=== PATIENT | male | born 1970 | race Two or more races ===

== ENCOUNTER 2024-08-17 11:14 | Emergency (ER) | payer OTHER, SELFPAY ==
--- NOTE | 2024-08-17 11:26 | EKG_ITS ---
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
--- NOTE | 2024-08-17 11:35 | XR_ITS ---
Examination: PA lateral chest 2 views TECHNIQUE: Upright PA lateral chest 2 views Exam date and time: August 17, 2024 1203 hours INDICATIONS: Chest pain beginning 2 days ago. FINDINGS: Mild enlargement cardiac contour Mild vascular congestion. No lobar pneumonia or pulmonary edema IMPRESSION: Mild vascular congestion
--- NOTE | 2024-08-17 11:37 | PD.EDRME ---
Rapid Medical Screening Exam RME Arrival date/time: 08/17/24 11:14 54-year-old male presents emergency department today with multiple episodes of either dozing off or passing out patient reports this is been ongoing for the last year Chief Complaint: Syncope / Near Syncope
[2024-08-17 11:49] VITALS: BP 196/112; BP 199/118; PULSE 68; RESP 20; TEMP 36.4; O2SAT 99
[2024-08-17 12:42] LABS: Glucose Estimated Average 137 mg/dL (80-131); Hemoglobin A1C 6.4 % Hgb (4.8-6.0)
[2024-08-17 12:48] LABS: B-Type Natriuretic Peptide 42 pg/mL (0-100)
[2024-08-17 12:51] LABS: Alanine Aminotransferase 19 U/L (10-49); Albumin, Serum 4.2 gm/dL (3.5-5.0); Albumin/Globulin Ratio 1.4 (1.2-2.2); Alkaline Phosphatase 93 U/L (46-116); Anion Gap 7 (7-16); Aspartate Amino Transferase 39 U/L (0-34); BUN/Creatinine Ratio 13 Ratio (12-20); Bilirubin,Total 0.6 mg/dL (0.3-1.2); Blood Urea Nitrogen 10 mg/dL (9-23); Calcium 9.4 mg/dL (8.3-10.6); Calcium (Corrected) 9.4 mg/dL (8.5-10.1); Carbon Dioxide 27.3 mMol/L (20.0-31.0); Chloride 104 mMol/L (98-107); Creatinine (Component) 0.8 mg/dL (0.6-1.3); Globulin 3.1 gm/dL (2.3-3.5); Glucose 97 mg/dL (74-106); Magnesium 1.9 mg/dL (1.6-2.6); Osmolality,Calculated 274 (275-295); Potassium 4.3 mMol/L (3.4-5.1); Sodium 138 mMol/L (136-145); Total Protein 7.3 gm/dL (5.7-8.2); Troponin I < 0.020 ng/mL (0.0-0.045); eGFR > 60 See Note
[2024-08-17 12:52] LABS: Prothrombin Time 11.4 Seconds (9.0-12.2)
[2024-08-17 13:39] LABS: Collection Type, Urine Clean Catch
[2024-08-17 13:49] LABS: Bilirubin,Urine Negative (Negative); Blood,Urine Negative (Negative); Clarity,Urine Clear (Clear/Hazy); Color,Urine Yellow (Lt Yel-Yel); Glucose, Urine Negative (Negative); Ketones,Urine Negative (Negative); Leukocyte Esterase,Urine Negative (Negative); Nitrite,Urine Negative (Negative); Protein,Urine 3+ (Neg - Trace); RBC,Urine 2 /hpf (0-3); Specific Gravity,Urine 1.022 (1.001-1.035); Squamous Epithelial Cell,Urine < 1 /hpf (0-5); WBC,Urine 5 /hpf (0-5)
[2024-08-17 13:54] LABS: Amphetamine/Methamp Scrn,U Negative (Negative); Barbiturate Screen,Urine Negative (Negative); Benzodiazepines Screen,Urine Negative (Negative); Benzoylecgonine Screen, Ur Negative (Negative); Fentanyl Screen,Urine Negative (Negative); Opiate Screen,Urine Negative (Negative); THC Screen,Urine Negative (Negative)
[2024-08-17 15:52] LABS: Basophils # (Auto) 0.1 Thou/mm3 (0.0-0.2); Basophils % (Auto) 1 % (0-2.5); Eosinophils # (Auto) 1.3 Thou/mm3 (0.0-0.5); Eosinophils % (Auto) 12 % (0-10); Hemoglobin 11.5 g/dL (13.5-16.0); Immature Granulocytes % (Auto) 0 % (0-0); Immature Granulocytes Auto 0.05 Thou/mm3 (0.00-0.00); Lymphocytes # (Auto) 1.5 Thou/mm3 (1.0-4.8); Lymphocytes % (Auto) 13 % (10-50); Mean Corpuscular HGB Conc 25.6 g/dl (31.0-37.0); Mean Corpuscular Hemoglobin 14.9 pg (25.0-35.0); Mean Corpuscular Volume 58 fL (80-100); Monocytes % (Auto) 9 % (0-12); Neutrophils # (Auto) 7.3 Thou/mm3 (1.8-7.7); Neutrophils % (Auto) 65 % (37-80); Nucleated Red Blood Cell % 0 /100 WBC (0); Platelet Count 230 Thou/mm3 (140-440); RDW Standard Deviation 46.5 fL (35.1-43.9); Red Blood Count 7.74 Miln/mm3 (4.50-5.90); White Blood Count 11.3 Thou/mm3 (3.8-10.6)
[2024-08-17 16:34] LABS: Path Review Blood Smear Sent to Pathologist
[2024-08-17 16:39] VITALS: BP 202/102; BP 204/100; PULSE 67; RESP 18; TEMP 36.6; O2SAT 95
--- NOTE | 2024-08-17 16:55 | EDNOTE_ITS ---
ED Syncope RME/HPI General Chief Complaint: Syncope / Near Syncope Stated Complaint: SYNCOPE LAST NIGHT AT HOME Time Seen by Provider: 08/17/24 18:18 Arrival date/time: 08/17/24 11:14 RME / HPI RME / HPI narrative: 08/17/24 11:14 54-year-old male presents emergency department today with multiple episodes of either dozing off or passing out patient reports this is been ongoing for the last year DR. CLARK MAIN ED EVALUATION: 54 year old male presents to the Emergency Department with complaint of multiple episodes of dozing off or passing out and generalized weakness. Onset of symptoms a year. Related Data Allergies Allergy/AdvReac Type Severity Reaction Status Date / Time NKA* Allergy Uncoded 08/17/24 11:15 Review of Systems Review of Systems Systems Reviewed: All systems reviewed, normal except as documented Narrative Review of Systems: GEN: No fever, no chills, no weight loss EYES: No discharge, no visual changes, no pain HEENT: No ear pain, no congestion, no sore throat PULM: No shortness of breath, no cough, no congestion CV: No chest pain, no dyspnea on exertion, no palpitations GI: No nausea, no vomiting, no diarrhea, no pain, no constipation : No frequency, no urgency and no dysuria MUSC/SKEL: No joint pain, no back pain SKIN: No rash PSYCH: No hallucinations, no depression HEME/LYMPH: No easy bleeding or bruising tendencies NEURO: + syncopal episodes? (see HPI), + generalized weakness, no headache Past Medical History Social History SMOKING STATUS: Never smoker SUBSTANCE USE: does not use ALCOHOL: Never ED Exam Narrative Physical exam: GENERAL APPEARANCE: alert and oriented x 4, well-developed, well-nourished, no acute distress VITALS: All vitals were reviewed and the pulse ox is 95% on room air, which is normal according to my interpretation. HEENT: Normocephalic, atraumatic; pupils equal, round, reactive to light; EOMI; mucous membranes pink, moist; oropharynx clear NECK: Supple LUNGS: CTABL; no wheezes, no rales, no rhonchi HEART: Regular rate, regular rhythm; normal S1, S2; no murmurs ABDOMEN: non distended; normal BS; soft, no tenderness, no guarding, no rebound; no masses, no organomegaly, no hernia BACK: no CVA tenderness EXTREMITIES: atraumatic; no edema NEUROLOGIC: awake; alert and oriented x4; cranial nerves II-XII grossly intact; no focal sensory or motor deficits PSYCHIATRIC: appropriate mood and affect SKIN: warm, dry, normal color; no rashes Course Course Course Narrative: 1800: Patient was signed out to Dr. De Guzman. Past medical, surgical, social and family history reviewed. Vitals and home medications reviewed. Results and treatment plan discussed. They will assume the care of the patient at this time and will follow the patient, pending remainder of diagnostic tests and final disposition. Quality Measures none Orders Category Date Time Status EKG (ED ONLY) *Do not use* NOW Care 08/17/24 11:[address] head/brain wo con Stat Exams 08/17/24 18:21 Ordered EKG (ED Only) Stat Exams 08/17/24 11:26 Draft XR chest 2V Stat Exams 08/17/24 11:35 Completed A1C [Glycohemoglobin w (eAG)] Stat Lab 08/17/24 11:57 Completed B-Type Natriuretic Peptide Stat Lab 08/17/24 11:57 Completed CBC Stat Lab 08/17/24 15:24 Completed Comprehensive Metabolic Panel Stat Lab 08/17/24 11:57 Completed Drug Screen,Urine Stat Lab 08/17/24 13:10 Completed Magnesium Stat Lab 08/17/24 11:57 Completed Partial Thromboplastin Time Stat Lab 08/17/24 11:57 Completed Path Review Blood Smear Stat Lab 08/17/24 15:24 Completed Prothrombin Time with INR Stat Lab 08/17/24 11:57 Completed Troponin I Stat Lab 08/17/24 11:57 Completed Urinalysis Stat Lab 08/17/24 13:10 Completed Metoprolol Tartrate [Lopressor] Med 08/17/24 18:21 Discontinued 50 mg PO X1 ONE cloNIDine HCL [Catapres] Med 08/17/24 18:21 Discontinued 0.2 mg PO X1 ONE hydrALAZINE HCL [Apresoline] Med 08/17/24 16:52 Discontinued 25 mg PO X1 ONE Vital Signs Vital signs: Vital Signs Temperature 97.6 F 08/17/24 11:49 Pulse Rate 68 08/17/24 11:49 Respiratory Rate 20 08/17/24 11:49 Blood Pressure 196/112 H 08/17/24 11:49 Pulse Oximetry (%) 99 08/17/24 11:49 Oxygen Delivery Method Room Air 08/17/24 11:49 Syncope MDM Narrative MDM Narrative:: IAlisa am scribing for and in the presence of Dr. Clark. Patient data External records reviewed:: [facility] previous records (Reviewed last ED visit dated 01/09/24, discharged with the following: Encounter for removal of mary) Clinical information provided by:: patient Social determinants that could affect healthcare access:: none Patient has the following chronic illnesses:: Denies any PMHx, surgeries, daily medications, or known allergies. How is presenting disease/condition affected by chronic disease/condition?: no chronic disease Evaluation data The following diagnostics were reviewed and interpreted by me:: lab results, radiology exam(s) and EKG tracing(s) (EKG#1: EKG at 1144 hours. Interpreted by me: sinus rhythm with first degree AV block, rate 66, left axis deviation) Lab and/or radiology exams considered but not ordered:: none Interpretation Summary: Procedure(s): XR chest 2V Accession Number(s): [id number] cc: Sobia (MEDICAL ASSISTING PROGRAM DIRECTOR),Geovanni WILCOX; Enrique Jose MD; NO PRIMARY/FAMILY,PHYSICIAN~ Examination: PA lateral chest 2 views TECHNIQUE: Upright PA lateral chest 2 views Exam date and time: August 17, 2024 1203 hours INDICATIONS: Chest pain beginning 2 days ago. FINDINGS: Mild enlargement cardiac contour Mild vascular congestion. No lobar pneumonia or pulmonary edema IMPRESSION: Mild vascular congestion Dictated By: Enrique Jose MD Medications / Prescriptions Medications or Prescriptions considered but not ordered:: none Medication administrations:: Medication Administration History Discontinued Medications Clonidine (Clonidine Hcl 0.1 Mg Tablet) 0.2 mg PO X1 ONE Stop: 08/17/24 18:22 Hydralazine HCl (Hydralazine Hcl 25 Mg Tablet) 25 mg PO X1 ONE Stop: 08/17/24 16:53 Last Admin: 08/17/24 17:16 Dose: 25 mg Documented By: Metoprolol Tartrate (Metoprolol Tartrate 25 Mg Tablet) 50 mg PO X1 ONE Stop: 08/17/24 18:22 see above Consultations Consultation(s) initiated? (list below): No Diagnosis Syncope Differential Diagnosis: vasovagal syncope, dehydration and other (electroly imbalance) Most likely diagnosis given after review of the tests above:: No official diagnoses at this time, still pending diagnostic tests. Patient signout to the shift engineer provider. Admission Indicated Admission indicated?: not indicated Explain why admission is indicated or not indicated:: No final disposition plan at this time, still pending diagnostic tests. Patient signout to the shift engineer provider. Admission Request Was there a request for admission?: No Disposition Plan Disposition Plan: other (specify) (Patient signout to the shift engineer provider. ) Discharge Plan Prescriptions/Referrals Referrals: No Primary/Family,Physician [Primary Care Provider] - In 1 week Problem List Clinical Impression: Syncope, Hypertensive urgency Patient/Caregiver Discharge Instructions Print Language: Uzbek
[2024-08-17 17:16] VITALS: BP 204/100; PULSE 67
[2024-08-17] MEDS: hydrALAZINE HCL 25 MG TABLET PO (17:16)
--- NOTE | 2024-08-17 18:00 | EDNOTE_ITS ---
Emergency Room Addendum <Edelmira Singh - Last Filed: 08/17/24 19:37> Addendum Narrative: I took over the care from Dr. Clark at 6 PM on 08/17/2024, see her notes for complete H&P and ED course. Please refer to the emergency department record for history and examination from initial visit. I reviewed all diagnostic test results. My interpretation of the EKG is My interpretation of the chest x-ray is My review of the CT report is Blood tests and urine tests At this point, diagnoses include Treatment here included Significant improvement Discharge instructions from Dr. De Guzman: 1. After extensive evaluation, there is no life-threatening condition.? Such as stroke or brain tumor or heart attack or pneumothorax (collapsed lung). 2. We need to lower BP and heart rate to live longer. 3. Take clonidine 0.2 mg every morning and clonidine 0.2 mg and metoprolol 100 mg every night.. 4. See a private doctor on 08/19/2024 for recheck and further care. Ask to review all test results and official radiology reports, to make sure you receive all necessary follow-ups and monitoring. To make sure there is no serious underlying heart condition, ask to help you get more tests for your heart that cannot be done here in the ER.? Such as Holter Monitor (cardiac monitoring at home from a day to even a month), heart stress test (on treadmill or with medication), echocardiogram (imaging of your heart structures), heart catherization (checking for blockages in your heart arteries), and a referral to see a Therapy Site Coordinator. 5. Seek immediate medical care with worsening or with any concerns.?? Tj De Guzman MD. <Tj De Guzman MD - Last Filed: 08/17/24 19:39> Addendum Narrative: I took over the care from Dr. Clark at 6 PM on 08/17/2024, see her notes for complete H&P and ED course. I reviewed all diagnostic test results. My interpretation of the EKG is sinus rhythm with no acute ST?T changes. My interpretation of the chest x-ray is no acute findings. My review of the head CT report is no acute findings. Blood tests and urine tests unremarkable. At this point, diagnoses include hypertensive urgency. Treatment here included hydralazine and clonidine and metoprolol. Significant improvement noted. Prescribed BP medications and recommended more outpatient care. Discharge instructions from Dr. De Guzman: 1. After extensive evaluation, there is no life-threatening condition.? Such as stroke or brain tumor or heart attack or pneumothorax (collapsed lung). 2. We need to lower BP and heart rate to live longer. 3. Take clonidine 0.2 mg every morning and clonidine 0.2 mg and metoprolol 100 mg every night.. 4. See a private doctor on 08/19/2024 for recheck and further care. Ask to review all test results and official radiology reports, to make sure you receive all necessary follow-ups and monitoring. To make sure there is no serious underlying heart condition, ask to help you get more tests for your heart that cannot be done here in the ER.? Such as Holter Monitor (cardiac monitoring at home from a day to even a month), heart stress test (on treadmill or with medication), echocardiogram (imaging of your heart structures), heart catherization (checking for blockages in your heart arteries), and a referral to see a Therapy Site Coordinator. 5. Seek immediate medical care with worsening or with any concerns.?? Tj De Guzman MD.
--- NOTE | 2024-08-17 18:21 | XR_ITS ---
Examination: CT brain head without contrast. 2-D sagittal coronal reconstructions Date and time of exam:August 17, 2024 1712 hrs. Indications: Syncopal episode today with hypertension Comparison: December 29, 2023 CTDI: vol (mGy):60.7 DLP: (mGycm):1157 Technique: Multiple CT axial sections of the brain have been obtained, 5 mm slice thickness. Contrast has not been administered. 2-D sagittal, coronal reconstructions have been obtained Low dose protocols were performed. One or more of the following dose reduction techniques were used; automated exposure control, adjustment of the mA and/or KV according to patient size, use of iterative reconstruction technique. Findings: No significant ventricular enlargement. Intra-axial or extra-axial hemorrhage density is not seen. No mass effect or midline shift Basal cisterns are not remarkable. Fourth ventricle is midline. Cranial vault intact. Impression: Negative for acute hemorrhage, mass effect or midline shift Advise clinical correlation and follow-up accordingly
[2024-08-17 18:27] VITALS: BP 180/106; PULSE 65; PULSE 71; RESP 24; TEMP 36.6; O2SAT 98
[2024-08-17] MEDS: METOPROLOL TARTRATE 25 MG TABLET 50 MG PO (18:27)
[2024-08-17 18:31] VITALS: BP 174/101; PULSE 73
[2024-08-17] MEDS: cloNIDine HCL 0.1 MG TABLET 0.2 MG PO (18:31)
[2024-08-17 18:44] VITALS: BMI 46.0
[2024-08-17 20:13] VITALS: BP 179/97; PULSE 67; RESP 20; TEMP 36.6; O2SAT 97
== END 2024-08-17 20:16 | disposition home or self-care (01) ==
PROVIDERS: Nurse Practitioner Primary Care; Emergency Provider Emergency Medicine
DX: I16.0 Hypertensive urgency (principal); R55 Syncope and collapse; R09.89 Other specified symptoms and signs involving the circulatory and respiratory systems; I44.0 Atrioventricular block, first degree
CPT/HCPCS: 36415; 70450; 71046; 80053; 80307; 81001; 83036; 83735; 83880; 84484; 85025; 85610; 85730; 93005; 99284; A9270

== ENCOUNTER → 2025-06-21 | Outpatient (CLI) | payer BC, SELFPAY ==
--- NOTE | 2025-06-21 14:30 | XR_ITS ---
Examination: Retroperitoneal ultrasound, complete Technique: Multiple high resolution grayscale images of the retroperitoneum obtained, including kidneys and bladder. Exam date and time: June 21, 2025, 1427 hours INDICATIONS: Diagnosis nephrotic syndrome, abnormal renal function and laboratory examination 1 month ago. FINDINGS: Right kidney 12.6 cm renal cortex 2.2 cm Left kidney 12.4 cm renal cortex 1.9 cm Mild renal scarring, no hydronephrosis Contracted urinary bladder Negative for prostatomegaly IMPRESSION: Mild bilateral renal scarring, no hydronephrosis
== END | disposition home or self-care (01) ==
LOC: CDIM 14:13
PROVIDERS: PCP Internal Medicine; Referring Provider Internal Medicine Nephrology; Visit Provider Internal Medicine Nephrology
DX: N28.89 Other specified disorders of kidney and ureter (principal)
CPT/HCPCS: 76770